=== PATIENT | male | born 1955 | race Caucasian/White ===

== ENCOUNTER 2021-03-10 22:33 | Inpatient (IN) | payer MEDICARE ==
[~2021-03-10] VITALS: Ht 175.3 cm; Wt 99.8 kg
[~2021-03-10 22:33] MED LIST: AMLODIPINE BESYL5 MG PO; ASPIR-LOW81 MG PO; CUBICIN 500 MG500 MG INJ; ISOSORBIDE MONO30 MG PO; LEVOFLOXACIN250 MG PO; LIPITOR TAB 2020 MG PO; LOPRESSOR 50 MG50 MG PO; LOPRESSOR50 MG PO; NITROSTAT0.4 MG SL; NORCO 7.5-3251 EACH PO; PRINIVIL20 MG PO; ZESTRIL40 MG PO
[2021-03-11 00:31] LABS: HEMOGLOBIN 13.6 gm/dl (14.0-17.5); RED BLOOD COUNT 4.39 M/UL (4.20-5.50); WHITE BLOOD COUNT 9.2 K/UL (4.5-11.0)
[2021-03-11 00:56] LABS: BUN/CREATININE RATIO 13 (0-10)
[2021-03-11] MEDS ORDERED: ALBUTEROL2.5 MG/3 M INH (09:24)
[2021-03-11] MEDS ORDERED: PROVENTIL HFA6.7 GM INH (09:28)
[2021-03-11 15:56] LABS: BORDETELLA PARAPERTUSSIS Not Detected (Not Detectd); BORDETELLA PERTUSSIS Not Detected (Not Detectd); CHLAMYDIA PNEUMONIAE Not Detected (Not Detectd); CORONAVIRUS HKU1 Not Detected (Not Detectd); CORONAVIRUS NL63 Not Detected (Not Detectd); CORONAVIRUS OC43 Not Detected (Not Detectd); CORONOAVIRUS 229E Not Detected (Not Detectd); HUMAN METAPNEUMOVIRUS Not Detected (Not Detectd); HUMAN RHINOVIRUS/ENTEROVIRUS Not Detected (Not Detectd); INFLUENZA A Not Detected (Not Detectd); INFLUENZA B Not Detected (Not Detectd); MYCOPLASMA PNEUMONIAE Not Detected (Not Detectd); PARAINFLUENZA VIRUS 1 Not Detected (Not Detectd); PARAINFLUENZA VIRUS 2 Not Detected (Not Detectd); PARAINFLUENZA VIRUS 3 Not Detected (Not Detectd); PARAINFLUENZA VIRUS 4 Not Detected (Not Detectd); RESPIRATORY SYNCYTIAL VIRUS Not Detected (Not Detectd)
[2021-03-12 02:52] LABS: SARS-CoV-2 NOT DETECTED (Not Detectd)
--- NOTE | 2021-03-12 14:00 | NUR ---
NO CHANGE FROM PREVIOUS ASSESSMENT
[2021-03-13 14:17] LABS: HEMOGLOBIN 12.5 gm/dl (14.0-17.5); RED BLOOD COUNT 4.03 M/UL (4.20-5.50)
[2021-03-13 14:31] LABS: BUN/CREATININE RATIO 26 (0-10)
[2021-03-14 03:13] LABS: HEMOGLOBIN 11.9 gm/dl (14.0-17.5); RED BLOOD COUNT 3.84 M/UL (4.20-5.50); WHITE BLOOD COUNT 13.7 K/UL (4.5-11.0)
[2021-03-14 03:35] LABS: BUN/CREATININE RATIO 22 (0-10)
[2021-03-15 14:09] LABS: ORGANISM ID Not indicated. (.); SPECIMEN SOURCE Urine (.); STREPTOCOCCUS PNEUMONIAE AG Negative (Negative)
[2021-03-16 03:14] LABS: HEMOGLOBIN 12.4 gm/dl (14.0-17.5); RED BLOOD COUNT 3.97 M/UL (4.20-5.50); WHITE BLOOD COUNT 14.1 K/UL (4.5-11.0)
[2021-03-17 02:23] LABS: HEMOGLOBIN 12.1 gm/dl (14.0-17.5); RED BLOOD COUNT 4.06 M/UL (4.20-5.50); WHITE BLOOD COUNT 15.5 K/UL (4.5-11.0)
--- NOTE | 2021-03-17 09:05 | NUR ---
PT SIGNED AMA PAPERS, ON FLOOR AND AWARE. PT IS ALRET AND ORIENT X4. EXPLAINED THE IMPORTANCE OF STAYIN AND RECIEVING NEEDED TX, PT STATES "I'M LEAVING NO MATTER WHAT. PT VERBILIZES RISK OF LEAVING AMA. ALL RX GIVEN TO PT WELL QUESTIONS ANSWERED ABOUT NEW MEDS, ALSO LET PT KNOW HIS POTASSIUM WAS LOW AND REPLACED AND WOULD NO BE ABLE TO SEE IF LEVELS WHERE WNL AND PT STATES HE DOES NOT CARE. FRIEND PICKING PT UP ALSO NOTIFIED OF RISK OF PT LEAVING AMA WITH VOICED UNDERSTANING.
[2021-03-17] MEDS ORDERED: CLOPIDOGREL75 MG PO (09:06)
[2021-03-17] MEDS ORDERED: ISOSORBIDE MONO60 MG PO (09:06)
[2021-03-17] MEDS ORDERED: ASPIRIN EC81 MG PO (09:06)
[2021-03-17] MEDS ORDERED: ATORVASTATIN CA20 MG PO (09:06)
[2021-03-17] MEDS ORDERED: AUGMENTIN 875-1 EACH PO (09:06)
[2021-03-17] MEDS ORDERED: DILTIAZEM 24HR300 M1 PO (09:06)
[2021-03-17] MEDS ORDERED: CATAPRES 0.1MG0.1 MG PO (09:06)
[2021-03-17] MEDS ORDERED: PROTONIX 40 MG40 M1 PO (09:06)
[2021-03-17] MEDS ORDERED: MEDROL DOSEPAK 24 MG PO (09:06)
[2021-03-17] MEDS ORDERED: LASIX40 MG PO (09:08)
== END 2021-03-17 09:30 | disposition left against medical advice (07) | DRG 280 ==
LOC: ER1 22:33 → CDU 03-11 01:42 → PROG CARE 03-11 01:42
PROVIDERS: Family Medicine; Internal Medicine; Internal Medicine Cardiovascular Disease; Internal Medicine Pulmonary Disease; Nurse Practitioner; ADMIT Internal Medicine
DX: I21.4 Non-ST elevation (NSTEMI) myocardial infarction (principal); J96.21 Acute and chronic respiratory failure with hypoxia; J96.22 Acute and chronic respiratory failure with hypercapnia; I50.23 Acute on chronic systolic (congestive) heart failure; J13 Pneumonia due to Streptococcus pneumoniae; J44.1 Chronic obstructive pulmonary disease with (acute) exacerbation; N17.9 Acute kidney failure, unspecified; I47.2 Ventricular tachycardia; E66.2 Morbid (severe) obesity with alveolar hypoventilation; J44.0 Chronic obstructive pulmonary disease with (acute) lower respiratory infection; Z68.41 Body mass index [BMI] 40.0-44.9, adult; Z53.29 Procedure and treatment not carried out because of patient's decision for other reasons; I11.0 Hypertensive heart disease with heart failure; F15.10 Other stimulant abuse, uncomplicated; I48.0 Paroxysmal atrial fibrillation; R91.1 Solitary pulmonary nodule; I25.10 Atherosclerotic heart disease of native coronary artery without angina pectoris; E78.5 Hyperlipidemia, unspecified; B19.20 Unspecified viral hepatitis C without hepatic coma; Z96.651 Presence of right artificial knee joint; Z96.661 Presence of right artificial ankle joint; F17.200 Nicotine dependence, unspecified, uncomplicated; K21.9 Gastro-esophageal reflux disease without esophagitis; R60.1 Generalized edema; Z20.822 Contact with and (suspected) exposure to COVID-19; Z96.621 Presence of right artificial elbow joint; Z79.01 Long term (current) use of anticoagulants; Z86.19 Personal history of other infectious and parasitic diseases; Z98.1 Arthrodesis status
CPT/HCPCS: ECHO; 36415; 36600; 71045; 71250; 76705; 80048; 80053; 80061; 80307; 82550; 82553; 82803; 82962; 83036; 83605; 83735; 83874; 83880; 84100; 84132; 84439; 84443; 84484; 85025; 85379; 85730; 86140; 86738; 87040; 87070; 87077; 87186; 87205; 87278; 87633; 87899; 93005; 93306; 94640; 94660; 94664; 94760; 99285; C9113; J0295; J1644; J1940; J2060; J2543; J2920; J2930; J3475; Q9957; U0002

== ENCOUNTER 2021-04-29 13:59 | Observation (INO) | payer MEDICARE ==
[~2021-04-29] VITALS: Ht 162.6 cm; Wt 115.3 kg
[~2021-04-29 13:59] MED LIST changes: +ALBUTEROL2.5 MG/3 M INH; +ASPIRIN EC81 MG PO; +ATORVASTATIN CA20 MG PO; +AUGMENTIN 875-1 EACH PO; +CATAPRES 0.1MG0.1 MG PO; +CLOPIDOGREL75 MG PO; +DILTIAZEM 24HR300 M1 PO; +ISOSORBIDE MONO60 MG PO; +LASIX40 MG PO; +MEDROL DOSEPAK 24 MG PO; +PROTONIX 40 MG40 M1 PO; +PROVENTIL HFA6.7 GM INH
[2021-04-29 14:51] LABS: HEMOGLOBIN 13.3 gm/dl (14.0-17.5); RED BLOOD COUNT 4.12 M/UL (4.20-5.50); WHITE BLOOD COUNT 19.9 K/UL (4.5-11.0)
[2021-04-29 16:03] LABS: BUN/CREATININE RATIO 21 (0-10)
--- NOTE | 2021-04-30 00:59 | NUR ---
PT BED ALARM GOING OFF BECAUSE HE IS ATTMEPTING TO GET OUT OF THE BED. HE ASKS TO USE A URINAL AND HAVE SOMETHING TO EAT. I RESET THE ALARM AND GOT THE THINGS HE ASKED FOR. A FEW MINUTES LATER THE BED ALARM STARTED GOING OFF AGAIN AND WHEN I CAME INTO THE ROOM HE GOT AGGRESSIVE YELLING BECAUSE A BED ALARM HURT HIS PRIDE AND MADE HIM FEEL INVALID. MULTIPLE STAFF MEMBERS EXPLAINED TO HIM THAT IT WAS FOR HIS SAFETY AND NOT TO MAKE HIM FEEL ANY WAY. HE CONTINUED TO YELL AND BEGAN SLINGING ITEMS. SECURITY WAS CALLED. MODEL AND MOLD MAKER WAS NOTIFIED. PT IS A&O, AGREES TO THE RISKS OF FALLING AND STILL WISHES TO REFUSE HIS FALL PRECAUTIONS.
[2021-04-30 02:30] LABS: HEMOGLOBIN 13.6 gm/dl (14.0-17.5); RED BLOOD COUNT 4.3 M/UL (4.20-5.50)
[2021-04-30 02:31] LABS: WHITE BLOOD COUNT 11.3 K/UL (4.5-11.0)
[2021-04-30 12:22] LABS: BUN/CREATININE RATIO 27 (0-10)
[2021-05-01 06:14] LABS: BUN/CREATININE RATIO 33 (0-10)
[2021-05-01] MEDS ORDERED: DOXYCYCLINE HY100 MG PO (09:54)
== END 2021-05-01 13:59 | disposition home or self-care (01) ==
LOC: ER1 13:59 → CDU 16:55 → M/S 16:55
PROVIDERS: Preventive Medicine Occupational Medicine; ADMIT Internal Medicine
DX: R07.89 Other chest pain (principal); E87.2 Acidosis; R79.89 Other specified abnormal findings of blood chemistry; R77.8 Other specified abnormalities of plasma proteins; S31.109A Unspecified open wound of abdominal wall, unspecified quadrant without penetration into peritoneal cavity, initial encounter; I25.10 Atherosclerotic heart disease of native coronary artery without angina pectoris; I11.0 Hypertensive heart disease with heart failure; I50.22 Chronic systolic (congestive) heart failure; I48.0 Paroxysmal atrial fibrillation; I25.2 Old myocardial infarction; D64.89 Other specified anemias; G89.29 Other chronic pain; M54.2 Cervicalgia; E78.5 Hyperlipidemia, unspecified; J96.11 Chronic respiratory failure with hypoxia; I42.9 Cardiomyopathy, unspecified; F17.210 Nicotine dependence, cigarettes, uncomplicated; F15.10 Other stimulant abuse, uncomplicated; J18.9 Pneumonia, unspecified organism; J44.0 Chronic obstructive pulmonary disease with (acute) lower respiratory infection; E66.01 Morbid (severe) obesity due to excess calories; Z68.41 Body mass index [BMI] 40.0-44.9, adult; Z20.822 Contact with and (suspected) exposure to COVID-19; Z98.1 Arthrodesis status; Z98.890 Other specified postprocedural states; Z91.14 Patient's other noncompliance with medication regimen; Z91.19 Patient's noncompliance with other medical treatment and regimen; Z95.5 Presence of coronary angioplasty implant and graft; Z79.82 Long term (current) use of aspirin; Z79.02 Long term (current) use of antithrombotics/antiplatelets; Z79.899 Other long term (current) drug therapy; Z86.19 Personal history of other infectious and parasitic diseases; Z87.19 Personal history of other diseases of the digestive system; X58.XXXA Exposure to other specified factors, initial encounter
CPT/HCPCS: 36415; 36600; 71045; 80048; 80053; 80202; 80307; 81001; 82140; 82550; 82553; 82803; 83036; 83605; 83690; 83874; 83880; 84484; 85025; 85610; 85652; 85730; 86140; 87040; 87086; 93005; 94640; 94664; 94760; 96365; 96366; 96372; 96374; 96375; 96376; 99285; G0378; G0480; J0696; J1650; J2930; J3370; J7030; J7070; U0002

== ENCOUNTER → 2022-05-23 | Outpatient (CLI) | payer MEDICARE ==
[~2022-05-23] MED LIST changes: +DOXYCYCLINE HY100 MG PO
== END ==
LOC: KOH-I 14:12
DX: J44.9 Chronic obstructive pulmonary disease, unspecified (principal)
CPT/HCPCS: 71046